=== PATIENT | female | born 1955 | race African-American/Black ===

== ENCOUNTER 2025-09-17 21:14 | Inpatient (IN) | payer MEDICARE, OTHER ==
[~2025-09-17] VITALS: Ht 157.5 cm; Wt 50.0 kg
[2025-09-17 22:12] LABS: PLATELET COUNT (AUTO) 236 K/uL (179-408); RED BLOOD CELL COUNT(AUTO) 4.55 MIL/uL (3.63-4.92); RED CELL DISTRIBUTION WIDTH 13.5 % (12.3-17.7); WHITE BLOOD COUNT (AUTO) 4.0 K/uL (3.8-11.8)
[2025-09-17] MEDS ORDERED: ASPIRIN 81 MG TAB.CHEW ONE (22:14)
[2025-09-17] MEDS ORDERED: NITROGLYCERIN OINT 1 GM PACKET TP ONE (22:15)
[2025-09-17] MEDS: ASPIRIN 81 MG TAB.CHEW PO ONE (22:17)
[2025-09-17] MEDS: NITROGLYCERIN OINT 1 GM PACKET TP ONE (22:18)
[2025-09-17 22:19] LABS: CREATININE 0.8 mg/dL (0.6-1.3); SODIUM SERUM 143 mmol/L (136-145); UREA NITROGEN, BLOOD 14 mg/dL (7-18)
[2025-09-17 22:25] LABS: ASPARTATE AMINOTRANSFERASE 18 U/L (15-37); TOTAL PROTEIN, SERUM 7.5 g/dL (6.4-8.2)
[2025-09-17] MEDS ORDERED: metoprolol PO (23:17)
[2025-09-17] MEDS ORDERED: ATOR10TA PO (23:17)
[2025-09-17] MEDS ORDERED: MECL-159 PO (23:17)
[2025-09-18] VITALS (8 sets, daily range): BP systolic 101–142; BP diastolic 63–86; TEMP 97.6–98.6; O2SAT 96–100
[2025-09-18] MEDS ORDERED: ACETAMINOPHEN 325 MG TABLET PO PRN (00:30)
[2025-09-18] MEDS ORDERED: REMEDY ESSENTIAL ZINC PASTE 113 GM TP PRN (00:30)
[2025-09-18] MEDS ORDERED: NITROGLYCERIN 0.4 MG/TAB BOTTLE SL PRN (00:30)
[2025-09-18] MEDS ORDERED: ONDANSETRON 4 MG/2 ML VIAL IV PRN (00:30)
[2025-09-18] MEDS ORDERED: MAGNESIUM HYDROXIDE 30 ML LIQUID UDC PO PRN (00:30)
[2025-09-18] MEDS: PANTOPRAZOLE SODIUM 40 MG TABLET.DR PO SCH (07:01)
[2025-09-18] MEDS: ENOXAPARIN SODIUM 40 MG/0.4 ML DISP.SYRIN SQ SCH (09:00)
[2025-09-18] MEDS: CLOPIDOGREL 75 MG TABLET PO SCH (09:35)
[2025-09-18] MEDS: METOPROLOL SUCCINATE XL 25 MG TAB.SR.24H PO SCH (09:35)
[2025-09-18] MEDS: ISOSORBIDE MONONITRATE 30 MG TAB.SR.24H PO SCH (09:35)
[2025-09-18] MEDS: ASPIRIN 81 MG TAB.CHEW PO SCH (09:35)
[2025-09-18] MEDS: ATORVASTATIN 40 MG TABLET PO SCH (20:37)
[2025-09-18] MEDS: HYDROCODONE/APAP 5-325MG TABLET PO PRN (20:38)
[2025-09-19 00:14] VITALS: BP 123/70; TEMP 98.2; O2SAT 99
[2025-09-19 04:51] VITALS: BP 126/84; TEMP 98; O2SAT 99
[2025-09-19 06:45] LABS: PLATELET COUNT (AUTO) 224 K/uL (179-408); RED BLOOD CELL COUNT(AUTO) 4.31 MIL/uL (3.63-4.92); RED CELL DISTRIBUTION WIDTH 13.3 % (12.3-17.7); WHITE BLOOD COUNT (AUTO) 3.6 K/uL (3.8-11.8)
[2025-09-19 06:56] LABS: CREATININE 0.9 mg/dL (0.6-1.3); SODIUM SERUM 141.0 mmol/L (136-145); UREA NITROGEN, BLOOD 17.0 mg/dL (7-18)
[2025-09-19 08:06] VITALS: BP 126/74; TEMP 97.9; O2SAT 100
[2025-09-19 11:30] VITALS: BP 152/87; TEMP 97.4; O2SAT 100
[2025-09-19] MEDS ORDERED: CYCL30DR EACHEYE (12:50)
[2025-09-19] MEDS ORDERED: THYR60TA2 PO (12:50)
[2025-09-19 19:47] VITALS: BP 147/94; TEMP 98.5; O2SAT 100
[2025-09-19] MEDS ORDERED: MECLIZINE HCL 25 MG TABLET PO PRN (21:45)
[2025-09-20 06:00] VITALS: BP 150/100; TEMP 97.8; O2SAT 100
[2025-09-20 08:06] VITALS: BP 140/89; TEMP 97.8; O2SAT 100
[2025-09-20] MEDS: THYROID 60 MG TABLET PO SCH (08:54)
[2025-09-20 15:37] VITALS: BP_SYST 112; BP_SYST 136; BP_DIAS 49; BP_DIAS 99; TEMP 97.9; TEMP 98; O2SAT 93; O2SAT 99
[2025-09-20 19:10] VITALS: BP 134/86; TEMP 98.4; O2SAT 100
[2025-09-21 06:19] VITALS: BP 134/80; TEMP 97.6; O2SAT 100
[2025-09-21 08:57] VITALS: BP 132/66; TEMP 98.5; O2SAT 99
[2025-09-21 14:26] VITALS: BP 145/95; TEMP 98.4; O2SAT 100
[2025-09-21 15:01] VITALS: BP 145/95
[2025-09-21] MEDS: AMLODIPINE 2.5 MG TABLET PO ONE (15:01)
== END 2025-09-21 18:08 | DRG 311 ==
LOC: ER 21:14 → TELE3 09-18 00:20 → MEDSURG3 09-19 08:27 → MEDSURG1 09-20 04:21 → UNDODISIN 09-21 11:18
PROVIDERS: ADMIT Nurse Practitioner Acute Care; ATTEND Internal Medicine
DX: I20.0 Unstable angina (principal); Z59.01 Sheltered homelessness; E06.3 Autoimmune thyroiditis; I11.9 Hypertensive heart disease without heart failure; I25.2 Old myocardial infarction; Z79.899 Other long term (current) drug therapy; F41.9 Anxiety disorder, unspecified; Z88.0 Allergy status to penicillin
CPT/HCPCS: 36415; 71045; 83735; 84100; 84443; 84484; 85025; 93307; A4663; G0378; J1650